=== PATIENT | male | born 1985 | race Caucasian/White ===

== ENCOUNTER 2022-03-05 00:56 | Emergency (ER) | payer SELFPAY ==
[~2022-03-05] VITALS: Ht 170.2 cm; Wt 79.0 kg
[2022-03-05] MEDS ORDERED: IBUPROFEN 600MG TABLET PO ONE (07:15)
[2022-03-05 08:08] VITALS: BP 126/79
[2022-03-05] MEDS ORDERED: IBUP-2029 MT (08:24)
[2022-03-05] MEDS ORDERED: CYCL10TA21 MT (08:24)
== END 2022-03-05 08:52 | disposition home or self-care (01) ==
LOC: ER 00:56 → EDBD 00:56 → ER 08:52
DX: M17.12 Unilateral primary osteoarthritis, left knee (principal); M54.50 Low back pain, unspecified
CPT/HCPCS: 73560; 99283

== ENCOUNTER 2022-04-01 03:18 | Emergency (ER) | payer SELFPAY ==
[~2022-04-01 03:18] MED LIST: CYCL10TA21 MT; IBUP-2029 MT
[2022-04-02] MEDS ORDERED: IBUP-2029 MT (17:27)
[2022-04-02] MEDS ORDERED: CYCL10TA21 MT (17:49)
== END 2022-04-01 03:29 | disposition left against medical advice (07) ==
LOC: ER 03:18
DX: Z53.21 Procedure and treatment not carried out due to patient leaving prior to being seen by health care provider (principal)

== ENCOUNTER 2022-04-02 09:19 | Emergency (ER) | payer MEDICAID ==
[~2022-04-02] VITALS: Ht 167.6 cm; Wt 83.0 kg
[2022-04-02] MEDS ORDERED: KETOROLAC 30MG/ML VIAL IM ONE (14:00)
[2022-04-02 14:21] VITALS: BP 125/91
[2022-04-02] MEDS ORDERED: IBUP-2029 MT (17:27)
[2022-04-02] MEDS ORDERED: CYCL10TA21 MT (17:49)
== END 2022-04-02 18:07 | disposition home or self-care (01) ==
LOC: ER 09:19
DX: M54.50 Low back pain, unspecified (principal); M25.562 Pain in left knee
CPT/HCPCS: 72100; 72148; 73562; 96372; 99284; J1885

== ENCOUNTER 2022-04-09 21:56 | Emergency (ER) | payer MEDICAID ==
[~2022-04-09] VITALS: Ht 170.2 cm; Wt 89.3 kg
[2022-04-10] MEDS ORDERED: KETOROLAC 60MG/2ML VIAL IM ONE (00:15)
[2022-04-10] MEDS ORDERED: IBUP-2028 MT (00:16)
[2022-04-10 00:37] VITALS: BP 124/78
== END 2022-04-10 00:39 | disposition home or self-care (01) ==
LOC: ER 21:56
DX: R51.9 Headache, unspecified (principal)
CPT/HCPCS: 96372; 99283; J1885

== ENCOUNTER 2022-04-10 20:49 | Emergency (ER) | payer MEDICAID ==
[~2022-04-10] VITALS: Ht 170.2 cm; Wt 86.0 kg
[~2022-04-10 20:49] MED LIST changes: +IBUP-2028 MT
[2022-04-10 21:51] VITALS: BP 116/72
== END 2022-04-10 23:42 | disposition left against medical advice (07) ==
LOC: ER 20:49
DX: Z53.21 Procedure and treatment not carried out due to patient leaving prior to being seen by health care provider (principal)

== ENCOUNTER 2022-04-11 00:06 | Emergency (ER) | payer MEDICAID ==
[~2022-04-11] VITALS: Ht 170.2 cm; Wt 87.0 kg
[2022-04-11 00:19] VITALS: BP 118/77
== END 2022-04-11 01:55 | disposition left against medical advice (07) ==
LOC: ER 00:06
DX: Z53.21 Procedure and treatment not carried out due to patient leaving prior to being seen by health care provider (principal)